=== PATIENT | male | born 1960 | race Caucasian/White ===

== ENCOUNTER 2020-05-05 14:09 | Inpatient (IN) | payer MEDICAID ==
[2020-05-06 00:20] VITALS: BP 148/101
[2020-05-06] MEDS ORDERED: Magnesium Hydroxide (MOM) 30 mL UDC PO PRN (00:34)
[2020-05-06] MEDS ORDERED: Maalox 30 mL Cup PO PRN (00:34)
--- NOTE | 2020-05-06 17:31 | History and Physical ---
History of Present Illness - HPI Chief Complaint: Acute Psychosis HPI: * Transferred from 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 Pertinent Hx GI: Report: No Pertinent Hx Psych: Report: Anxiety Musculoskeletal: Report: No Pertinent Hx Rheumatologic: Report: No pertinent Hx Infectious Disease: Report: No Pertinent Hx Renal/: Report: No Pertinent Hx Endocrine: Report: No Pertinent Hx Dermatology: Report: No Pertinent Hx - Past Surgical History Past Surgical History: No pertinent Hx Family Medical History - Family Member Mother History Unknown: Yes Social History Smoke: # pack years (Unknown) Alcohol: None Drugs: None Lives: Homeless - Medications Home Medications: Home Medication Medication Instructions Recorded Type Amlodipine Besylate 5 mg PO DAILY 05/06/20 History [place] Carbonate [[place] 900 mg PO HS 05/06/20 History Carbonate ER] QUEtiapine Fumarate [SEROquel] 200 mg PO HS 05/06/20 History - Allergies Allergies/Adverse Reactions: Allergies Allergy/AdvReac Type Severity Reaction Status Date / Time peanut Allergy Verified 05/06/20 00:21 Penicillins Allergy Verified 05/06/20 00:23 Review of Systems - Review of Systems Constitutional: Report: Fever Eyes: Denies: No Significant, Pain, Vision Change, Conjunctivae Inflammation, Eyelid Inflammation, Redness, Other ENT: Denies: No Significant, Ear Pain, Ear Discharge, Nose Pain, Nose Discharge , Nose Congestion, Mouth Pain, Mouth Swelling, Throat Pain, Throat Swelling, Other Respiratory: Denies: No Significant, Cough, Dry, Shortness of Breath, Hemoptysis , SOB with Excertion, Pleuritic Pain, Sputum, Wheezing, Other Cardiovascular: Denies: No Significant, Chest Pain, Palpitations, Orthopnea, Paroxysmal Noc. Dyspnea, Edema, Light Headedness, Other Gastrointestinal: Denies: No Significant, Nausea, Vomiting, Abdominal Pain, Diarrhea, Constipation, Melena, Hematochezia, Other Genitourinary: Denies: No Significant, Dysuria, Frequency, Incontinence, Hematuria, Retention, Other Musculoskeletal: Denies: No Significant, Neck Pain, Shoulder Pain, Arm Pain, Back Pain, Hand Pain, Leg Pain, Foot Pain, Other Skin: Denies: No Significant, Rash, Lesions, John, Bruising, Other Neurological: Report: Confusion. Denies: No Significant, Weakness, Numbness, Incoordination, Change in Speech, Seizures, Other Physical Exam - Physical Exam HEENT: Report: Ears Nose Throat within normal limits, Pharnyx within normal limits Neck: Report: Within normal limits Cardiovascular Systems: Report: Regular, Rate and Rhythm, no murmurs noted Respiratory: Report: Clear to Auscultation of lung celeste, Breath Sounds are within normal limits Abdomen: Report: Non-tender to palpation, Bowel Sounds are within normal limits Back: Report: Inspection of back is within normal limits. Extremities: Report: Non-tender to palpation., Patient had full range of motion , No pedal edema was noted on inspection Skin: Report: Color of skin is within normal limits, Warm, Dry, No Rashes noted of the skin Neuro/Psych: Report: A+Ox3, CN II-XII intact, Depressed affect, No motor deficit , No sensory deficit, No new focal deficits - Assessment Assessment: * Mood Disorder * Hypertension * Pyrexia of Unknown Origin * Tobacco Abuse * Homeless * PCN Allergy * Peanut Allergy - Plan Plan: * Admitted to [facility] * Psychiatry Consult * Obtain labs * Continue home meds Cranial Nerve Assessment - CRANIAL NERVES alcohol swab:: Yes Distinguishes movements in peripheral field.:: Yes up, down, sideways:: Yes on forehead, cheeks and chin, chews symmetrically:: Yes FACIAL VII: upper: Frowns Symmetrically:: Yes FACIAL VII: Lower: Smiles Symmetrically:: Yes both ears:: Yes GLOSS-PHARYNGEAL IX: Has gag reflex:: Yes VAGUS X: Can make guttural sounds:: Yes ACCESSORY XI: Shrugs shoulders symmetrically:: Yes tremors or fasciculation's:: Yes - MOTOR spasticity, cogwheel, atrophy, tremor, asterixis, other: Yes - COORDINATION Finger to nose, heel to gann, LAI, gait, Romberg: Yes - SENSORY signs, Brudzinski, Kernig, neck rigidity:: Yes - REFLEXES Brachioradials Right:: Yes Brachioradials Left:: Yes Biceps Right:: Yes Biceps Left:: Yes Triceps Right:: Yes Triceps Left:: Yes Knee Right:: Yes Knee Left:: Yes Ankle Right:: Yes Ankle Left:: Yes Babinski Right:: No Babinski Left:: No
--- NOTE | 2020-05-07 00:47 | Progress Notes ---
DATE: 05/06/2020 IDENTIFYING DATA: The patient is a 59-year-old -[place]oc[place] male, currently homeless. Information obtained by directly interviewing the patient as well as reviewing the admission papers. JUSTIFICATION OF HOSPITALIZATION: The patient is admitted on 5150 as a danger to self. CHIEF COMPLAINT: "I am suicidal." HISTORY OF PRESENT ILLNESS: This is the first psychiatric hospitalization to [facility] for this patient who is reported to have been threatening suicide and wanted to run into the traffic and hence he has been placed on 5150 and admitted over here for stabilization from [facility]. During the evaluation, the patient has been mentioning that he is on 300 mg twice a day of the lithium and 300 mg at bedtime of the Seroquel. The patient is reported to have been compliant with the medication. PAST PSYCHIATRIC HISTORY: The patient is reporting that he was hospitalized on many occasions. MEDICAL HISTORY: Physical examination is requested by Dr. Arita. SUBSTANCE ABUSE HISTORY: The patient denies use of any drugs or alcohol. LEGAL PROBLEMS: None at this time. SOCIAL HISTORY: The patient is currently homeless. MENTAL STATUS EXAMINATION: The patient is a 59-year-old, looking his stated age, superficially cooperative. Eye contact is poor. Mood is noted to be irritable. Affect is constricted. Insight and judgment are noted to be very much impaired. Impulse control is noted to be poor. The patient is screaming and yelling and demanding. The patient has paranoid delusions and coping skills are noted to be extremely poor. Attention span and concentration are noted to be poor. The patient's short-term memory and long-term memory are noted to be intact. The patient is of average intelligence. DIAGNOSTIC IMPRESSION: AXIS I: Schizoaffective disorder, depressed at this time. AXIS II: None. AXIS III: As per Dr. Arita. IMMEDIATE TREATMENT PLAN: The patient is going to be observed on inpatient unit, provided with supportive psychotherapy. The patient is going to be closely monitored. Once stabilized, the patient is going to be discharged to [facility] to be followed up on an outpatient basis. JOB# [id number]
--- NOTE | 2020-05-07 17:22 | Progress Notes ---
DATE: 05/07/2020 SUBJECTIVE: Staff was spoken to. The patient is interviewed. Mood is noted to be irritable. Affect is constricted. The patient is very demanding and grossly psychotic and has not been too keen on participating in any of the groups. Personal hygiene continues to be extremely poor. Insight and judgment also noted to be extremely impaired. The patient has been displaying lot of mood swings. No side effects to the medications are noted. The patient has been started on the lithium and Seroquel. The patient had the physical examination done by Dr. Claus Vázquez. ASSESSMENT: The patient is still having acute mood swings and paranoid. PLAN: To continue the patient with the current medications. I encouraged the patient to verbalize the concerns rather than to act out. senior accounting manager and the social secretary are going to be involved with regards to finding the patient a placement. JOB# [id number]
--- NOTE | 2020-05-08 16:48 | Progress Notes ---
DATE: 05/08/2020 PSYCHIATRIC PROGRESS NOTE SUBJECTIVE: Staff was spoken to. The patient is interviewed. Mood is noted to be irritable. Affect is constricted. Insight and judgment at this time are noted to be still impaired. Impulse control is noted to be poor. Coping skills are noted to be very poor. The patient has been having difficult time to cope with the stress. Continues to be very demanding, irritable and angry. No side effects to the medications are noted. The patient is currently on 300 mg of the Seroquel at bedtime and is only on 300 mg twice a day of the lithium carbonate. I am planning to increase the lithium to 300 mg 3 times a day and follow the patient up. JOB# [id number]
--- NOTE | 2020-05-09 15:17 | Progress Notes ---
DATE: 05/09/2020 PSYCHIATRIC PROGRESS NOTE SUBJECTIVE: Staff was spoken to. The patient is interviewed. Mood is noted to be irritable. Affect is constricted. Insight and judgment are noted to be still impaired. Impulse control is noted to be limited. Coping skills are noted to be limited. The patient has been tending to scream and yell. The patient has no insight into his illness. The patient's behavior is likely a danger to others. The patient is placed on the lithium and Seroquel. PLAN: To gradually titrate the dose of these medications. JOB# [id number]
--- NOTE | 2020-05-10 17:09 | Progress Notes ---
DATE: 05/10/2020 SUBJECTIVE: Staff was spoken to. The patient is interviewed. Mood is noted to be irritable. Affect is constricted. Insight and judgment at this time are noted to be still impaired. Impulse control seems to be limited. The patient tends to scream and yell when he does not get his way. The patient is currently on 300 mg 3 times a day of the lithium and has been able to tolerate the medication. In view of the patient's irritability, anger and paranoia, I have decided to increase the dose on the Seroquel to 400 mg at bedtime and the patient is going to be followed up with close to 400 mg and slowly and then I am going to be increasing it to 300 mg first and then gradually increased to 400 mg. ASSESSMENT: The patient is still psychotic and is not able to contract for safety. PLAN: To continue the patient with the current medications. I encouraged the patient to verbalize the concerns rather than to act out. JOB# [id number]
--- NOTE | 2020-05-11 19:14 | Progress Notes ---
DATE: 05/11/2020 SUBJECTIVE: Staff was spoken to. The patient is interviewed. Mood is noted to be irritable. Affect is constricted. The patient is stating that he is okay to return back to his place, but he states that he does not have any place. The patient is contradicting motivated. His insight and judgment at this time are noted to be still impaired. Impulse control seems to be improving. No side effects to the medications are noted at this time. The patient has been compliant with the medications. ASSESSMENT: The patient is still psychotic. PLAN: To continue the patient with the current medications. I encouraged the patient to verbalize the concerns rather than to act out. JOB# [id number]
--- NOTE | 2020-05-12 22:24 | Progress Notes ---
DATE: 05/12/2020 SUBJECTIVE: Staff was spoken to. The patient is interviewed. Mood is noted to be anxious. The patient's insight and judgment are noted to be improving. Impulse control seems to be fair today. The patient is reporting that possibly he is going to be leaving today because he has been told that there is going to be a placement that might have been arranged for him. The patient's insight and judgment at this time are noted to be improving. Impulse control seems to be fair. No side effects to the medications are noted. The patient is currently on Seroquel and lithium and has been able to tolerate the medication. ASSESSMENT: The patient is not suicidal or homicidal. PLAN: To continue the patient with the supportive therapy, encouraged the patient to verbalize the concerns rather than to act out and he wait for the placement. JOB# [id number]
--- NOTE | 2020-05-13 15:00 | Progress Notes ---
DATE: 05/13/2020 SUBJECTIVE: Staff was spoken to. The patient is interviewed. Mood is noted to be less irritable. Affect is appropriate. The patient is stating that he was supposed to be leaving yesterday, but nothing has happened and he is frustrated. Insight and judgment are noted to be improving. Impulse control seems to be fair. No side effects to the medications are noted. director of managed services have been spoken to and they are going to be looking into possible discharge of the patient today if the placement is available. JOB# [id number]
--- NOTE | 2020-05-14 15:18 | Progress Notes ---
DATE: 05/14/2020 PSYCHIATRIC PROGRESS NOTE SUBJECTIVE: Staff was spoken to. The patient is interviewed. Mood is noted to be anxious. Affect is appropriate. Insight and judgment are noted to be fair. Impulse control is also noted to be fair. However, the patient has been getting easily frustrated for being in here for too long and he is stating that he needs to go. services tech have been trying to look for placement for this patient. ASSESSMENT: The patient is stabilizing and awaiting placement. PLAN: To continue the patient with the supportive therapy and followup. JOB# [id number]
--- NOTE | 2020-05-18 20:25 | Discharge Summary ---
DATE OF DISCHARGE: 05/14/2020 IDENTIFYING DATA: The patient is a 59-year-old -[place] male admitted here on a 5150 as a danger to self. CHIEF COMPLAINT: "I don't want to talk to anyone upset." HISTORY OF PRESENT ILLNESS: This is the first psychiatric hospitalization to [facility] for this patient who has been evaluated and has been transferred over here on a 5150 due to increased agitation. The patient has been very angry and upset and has been threatening suicide and wanted to run into the traffic. The patient has been admitted here on a 5150. PAST PSYCHIATRIC HISTORY: Details are not known. For a detailed history, please refer to the 05/06/2020 dictation done by me. DIAGNOSES AT THE TIME OF THE ADMISSION: AXIS I: Schizoaffective disorder, depressed at this time. AXIS II: None. AXIS III: As per Dr. Arita. HOSPITAL COURSE AND RESPONSE TO TREATMENT: The patient has been observed on inpatient unit, provided with supportive psychotherapy. The patient has been closely monitored. I encouraged to verbalize the concerns rather than to act out. The patient has been very irritable and angry from the get go. The patient has been started on the lithium carbonate that was given 10 mg 3 times a day and the Seroquel was gradually increased up to 400 mg at bedtime. With these medications, the patient was observed and has been doing fairly well and the patient was finally discharged on 05/14/2020 with a recommendation that he is going to be seeking treatment on an outpatient basis. MENTAL STATUS EXAMINATION: At the time of discharge, the patient is noted to be less irritable. Affect is appropriate. Not suicidal or homicidal. Insight and judgment are noted to be fair. Impulse control is also noted to be fair. The patient is denying any command hallucinations at the time of the discharge. CONDITION: At the time of discharge noted to be stable. JOB# [id number]
== END 2020-05-14 15:30 | disposition home or self-care (01) | DRG 885 ==
LOC: GERO 23:05
PROVIDERS: ADMIT Psychiatry & Neurology Psychiatry; ATTEND Psychiatry & Neurology Psychiatry
DX: F25.1 Schizoaffective disorder, depressive type (principal); I10 Essential (primary) hypertension; F17.200 Nicotine dependence, unspecified, uncomplicated; R50.9 Fever, unspecified; Z88.0 Allergy status to penicillin; Z91.010 Allergy to peanuts; Z59.0 Homelessness; Z03.818 Encounter for observation for suspected exposure to other biological agents ruled out
CPT/HCPCS: 83036-90; G0410; U0003-CS; Z7610